=== PATIENT | female | born 2000 | race American Indian/Alaskan Native ===

== ENCOUNTER 2021-02-24 14:42 | Emergency (ER) | payer OTHER ==
[~2021-02-24] VITALS: Ht 165.1 cm; Wt 108.9 kg
[~2021-02-24 14:42] MED LIST: IBUPROFEN800 MG PO
[2021-02-24] MEDS ORDERED: PREVIFEM1 EACH PO (17:46)
[2021-02-24] MEDS ORDERED: PROZAC20 MG PO (17:47)
[2021-02-24] MEDS ORDERED: CYCLOBENZAPRINE10 MG PO (19:35)
[2021-02-24] MEDS ORDERED: DICLOFENAC SODI75 MG PO (19:35)
== END 2021-02-24 19:45 | disposition home or self-care (01) ==
LOC: ED 14:42
DX: S16.1XXA Strain of muscle, fascia and tendon at neck level, initial encounter (principal); V89.2XXA Person injured in unspecified motor-vehicle accident, traffic, initial encounter; Z79.899 Other long term (current) drug therapy
CPT/HCPCS: 72040; 99284-25; A9270

== ENCOUNTER 2022-03-23 12:32 | Emergency (ER) | payer OTHER ==
[~2022-03-23] VITALS: Ht 165.1 cm; Wt 108.9 kg
[~2022-03-23 12:32] MED LIST changes: +CYCLOBENZAPRINE10 MG PO; +DICLOFENAC SODI75 MG PO; +PREVIFEM1 EACH PO; +PROZAC20 MG PO
== END 2022-03-23 14:34 | disposition home or self-care (01) ==
LOC: ED 12:32
DX: S61.233A Puncture wound without foreign body of left middle finger without damage to nail, initial encounter (principal); Z79.899 Other long term (current) drug therapy; W27.3XXA Contact with needle (sewing), initial encounter
CPT/HCPCS: 64450; 99283-25